=== PATIENT | female | born 1970 | race Caucasian/White ===

== ENCOUNTER 2018-04-14 13:11 | Emergency (ER) | payer OTHER ==
[~2018-04-14] VITALS: Ht 152.4 cm; Wt 68.0 kg
[~2018-04-14 13:11] MED LIST: ADDERALL 20 MG20 MG; BYSTOLIC10 MG; CLONAZEPAM; K-DUR 20 MEQ T20 MEQ; LASIX 40 MG TAB40 M1; NORCO 5-325 TA1 EACH PO; PERCOCET 5-3251 EACH PO; PHENERGAN 25 MG25 M1 PO; PROZAC 20 MG20 M1; SYNTHROID50 MCG
[2018-04-14] MEDS ORDERED: [UNRECOGNIZED DRUG - OTHER] (13:30)
[2018-04-14] MEDS ORDERED: QUETIAPINE FUM100 MG PO (13:30)
[2018-04-14] MEDS ORDERED: LATUDA20 MG PO (13:31)
[2018-04-14] MEDS ORDERED: TOPAMAX25 M1 PO (13:31)
[2018-04-14] MEDS ORDERED: VERAPAMIL E.R240 M1 PO (13:35)
[2018-04-14] MEDS ORDERED: MOBIC15 MG PO (13:55)
[2018-04-14] MEDS ORDERED: MEDROL DOSPAK21 TA1 PO (13:55)
[2018-04-14 14:18] VITALS: BP 132/84
== END 2018-04-14 14:19 | disposition home or self-care (01) ==
LOC: M.ERS 13:11
DX: S83.242A Other tear of medial meniscus, current injury, left knee, initial encounter (principal); I10 Essential (primary) hypertension; F32.9 Major depressive disorder, single episode, unspecified; Z88.8 Allergy status to other drugs, medicaments and biological substances; Z88.1 Allergy status to other antibiotic agents; Z91.030 Bee allergy status; Z91.018 Allergy to other foods; Z88.0 Allergy status to penicillin; Z88.2 Allergy status to sulfonamides; Z88.6 Allergy status to analgesic agent; Z91.012 Allergy to eggs; Z98.890 Other specified postprocedural states; Z90.711 Acquired absence of uterus with remaining cervical stump; Z90.49 Acquired absence of other specified parts of digestive tract; W00.0XXA Fall on same level due to ice and snow, initial encounter; Y93.89 Activity, other specified; Y92.89 Other specified places as the place of occurrence of the external cause; Y99.8 Other external cause status

== ENCOUNTER 2020-09-05 20:06 | Emergency (ER) | payer OTHER ==
[~2020-09-05] VITALS: Ht 149.9 cm; Wt 79.4 kg
[~2020-09-05 20:06] MED LIST changes: +LATUDA20 MG PO; +MEDROL DOSPAK21 TA1 PO; +MOBIC15 MG PO; +QUETIAPINE FUM100 MG PO; +TOPAMAX25 M1 PO; +VERAPAMIL E.R240 M1 PO; +[UNRECOGNIZED DRUG - OTHER]
[2020-09-05 20:20] VITALS: BP 151/98
[2020-09-05] MEDS ORDERED: LEVO-T100 MCG PO (20:34)
[2020-09-05] MEDS ORDERED: TROKENDI XR200 MG PO (20:35)
[2020-09-05] MEDS ORDERED: VERAPAMIL ER120 MG PO (20:36)
[2020-09-05] MEDS ORDERED: DEPAKOTE ER500 M1 PO (20:37)
[2020-09-05] MEDS ORDERED: [UNRECOGNIZED DRUG - OTHER] PO (20:37)
[2020-09-05] MEDS ORDERED: ZOLOFT25 MG PO (20:38)
[2020-09-05] MEDS ORDERED: TRAZODONE HCL100 MG PO (20:38)
[2020-09-05] MEDS ORDERED: PREGABALIN150 MG PO (20:38)
[2020-09-05] MEDS ORDERED: LIPITOR40 MG PO (20:39)
[2020-09-05] MEDS ORDERED: [UNRECOGNIZED DRUG - OTHER] IM (20:40)
[2020-09-05] MEDS ORDERED: MYRBETRIQ25 MG PO (20:41)
[2020-09-05] MEDS ORDERED: FLONASE 0.05%50 MCG NARES (20:42)
[2020-09-05 20:51] LABS: URINE BILIRUBIN NEGATIVE (Negative); URINE BLOOD 1+ (Negative); URINE COLOR YELLOW; URINE GLUCOSE-RANDOM TRACE (Negative); URINE KETONES NEGATIVE (Negative); URINE LEUKOCYTES-REFLEX TRACE (Negative); URINE PROTEIN NEGATIVE (Negative)
[2020-09-05 20:52] LABS: URINE CLARITY HAZY; URINE NITRITE-REFLEX POSITIVE (Negative)
[2020-09-05 20:54] LABS: BACTERIA-REFLEX 1-9 Few /HPF (None Seen); CASTS None Seen /LPF (None Seen); CRYSTALS None Seen /LPF (None Seen); SQUAMOUS 4-10 Moderate /LPF (0-3); URINE RBC 3-10 Few /HPF (0-2); URINE WBC-REFLEX 0-5 Rare /HPF (0-5)
[2020-09-05 22:50] LABS: AMP/METHAMP Negative (Negative); BARBITURATES Negative (Negative); BENZODIAZEPINES Negative (Negative); COCAINE Negative (Negative); METHADONE Negative (Negative); OPIATES Negative (Negative); PCP Negative (Negative); THC Negative (Negative)
[2020-09-06 00:10] LABS: ABSOLUTE EOSINOPHILS 0.1 thou/uL (0.0-0.7); ABSOLUTE LYMPHOCYTES 1.2 thou/uL (0.8-5.3); ABSOLUTE MONOCYTES 0.5 thou/uL (0.0-1.2); ABSOLUTE NEUTROPHILS 7.1 thou/uL (1.6-8.1); BASOPHILS 0.4 %; EOSINOPHILS 0.6 %; HEMATOCRIT 42.3 % (37.0-47.0); HEMOGLOBIN 14.4 gm/dL (12.0-15.0); LYMPHOCYTES 13.4 %; MCH 31.7 pg (26.0-34.0); MCHC 33.9 g/dL (28.0-37.0); MCV 93.5 fL (80.0-100.0); MONOCYTES 5.3 %; NUCLEATED RBCS 0 /100WBC; PLATELET COUNT* 165 thou/uL (150-400); POLYS 80.3 %; RBC 4.53 mil/uL (4.20-5.00); RDW-CV 14.3 % (10.5-14.5); WBC 8.8 thou/uL (4.0-11.0)
[2020-09-06 00:18] LABS: CALCIUM 9.1 mg/dL (8.5-10.1); CREATININE 1.1 mg/dL (0.6-1.3)
[2020-09-06] MEDS ORDERED: ZOFRAN ODT4 MG PO (01:30)
[2020-09-06] MEDS ORDERED: HYDROCODON-ACE1 EAC8 PO (01:30)
[2020-09-06] MEDS ORDERED: COMPAZINE10 M2 PO (02:12)
== END 2020-09-06 02:28 | disposition home or self-care (01) ==
LOC: M.ERS 20:06
PROVIDERS: Emergency Medicine
DX: N20.0 Calculus of kidney (principal); N39.0 Urinary tract infection, site not specified; F12.90 Cannabis use, unspecified, uncomplicated; I10 Essential (primary) hypertension; Z88.1 Allergy status to other antibiotic agents; Z91.030 Bee allergy status; Z88.3 Allergy status to other anti-infective agents; Z79.899 Other long term (current) drug therapy; Z98.51 Tubal ligation status; Z90.49 Acquired absence of other specified parts of digestive tract

== ENCOUNTER 2021-04-21 15:40 | Emergency (ER) | payer BC ==
[~2021-04-21] VITALS: Ht 149.9 cm; Wt 79.4 kg
[~2021-04-21 15:40] MED LIST changes: +COMPAZINE10 M2 PO; +DEPAKOTE ER500 M1 PO; +FLONASE 0.05%50 MCG NARES; +HYDROCODON-ACE1 EAC8 PO; +LEVO-T100 MCG PO; +LIPITOR40 MG PO; +MYRBETRIQ25 MG PO; +PREGABALIN150 MG PO; +TRAZODONE HCL100 MG PO; +TROKENDI XR200 MG PO; +VERAPAMIL ER120 MG PO; +ZOFRAN ODT4 MG PO; +ZOLOFT25 MG PO; +[UNRECOGNIZED DRUG - OTHER] IM; +[UNRECOGNIZED DRUG - OTHER] PO
[2021-04-21] MEDS ORDERED: NURTEC ODT75 MG PO (15:57)
[2021-04-21] MEDS ORDERED: METFORMIN HCL500 M3 PO (15:58)
[2021-04-21 17:45] LABS: URINE BILIRUBIN NEGATIVE (Negative); URINE BLOOD NEGATIVE (Negative); URINE CLARITY CLEAR; URINE COLOR YELLOW; URINE GLUCOSE-RANDOM NEGATIVE (Negative); URINE KETONES NEGATIVE (Negative); URINE LEUKOCYTES NEGATIVE (Negative); URINE NITRITE NEGATIVE (Negative); URINE PROTEIN NEGATIVE (Negative); URINE SPECIFIC GRAVITY 1.015 (1.005-1.030); URINE UROBILINOGEN 0.2 E.U./dl (0.2-1.0)
[2021-04-21 17:48] LABS: ABSOLUTE EOSINOPHILS 0.1 thou/uL (0.0-0.7); ABSOLUTE LYMPHOCYTES 1.8 thou/uL (0.8-5.3); ABSOLUTE MONOCYTES 0.4 thou/uL (0.0-1.2); ABSOLUTE NEUTROPHILS 3.3 thou/uL (1.6-8.1); BASOPHILS 0.6 %; EOSINOPHILS 2.3 %; HEMOGLOBIN 13.9 gm/dL (12.0-15.0); LYMPHOCYTES 31.7 %; MCH 31.2 pg (26.0-34.0); MCV 94.5 fL (80.0-100.0); MONOCYTES 7.2 %; MPV 6.7 fl. (7.2-11.1); NUCLEATED RBCS 0 /100WBC; PLATELET COUNT* 233 thou/uL (150-400); POLYS 58.2 %; RBC 4.44 mil/uL (4.20-5.00); RDW-CV 13.8 % (10.5-14.5); WBC 5.6 thou/uL (4.0-11.0)
[2021-04-21 17:54] LABS: CALCIUM 8.7 mg/dL (8.5-10.1); POTASSIUM 3.7 mmol/L (3.5-5.1)
[2021-04-21 17:58] LABS: ALBUMIN 3.9 g/dL (3.4-5.0); TOTAL BILIRUBIN 0.3 mg/dL (<0.1-1.0); TOTAL PROTEIN 7.6 g/dL (6.4-8.2)
[2021-04-21 18:47] VITALS: BP 141/99
== END 2021-04-21 18:48 | disposition home or self-care (01) ==
LOC: M.ERS 15:40
PROVIDERS: Physician Assistant
DX: R09.81 Nasal congestion (principal); Z20.822 Contact with and (suspected) exposure to COVID-19; R53.83 Other fatigue; R53.1 Weakness; R06.02 Shortness of breath; R05.9 Cough, unspecified; R19.7 Diarrhea, unspecified; I10 Essential (primary) hypertension; F31.9 Bipolar disorder, unspecified; M79.7 Fibromyalgia; Z98.51 Tubal ligation status; Z90.710 Acquired absence of both cervix and uterus; Z90.49 Acquired absence of other specified parts of digestive tract; Z87.42 Personal history of other diseases of the female genital tract; Z79.899 Other long term (current) drug therapy; Z88.1 Allergy status to other antibiotic agents; Z88.8 Allergy status to other drugs, medicaments and biological substances; Z91.018 Allergy to other foods; Z88.0 Allergy status to penicillin; Z88.2 Allergy status to sulfonamides; Z91.012 Allergy to eggs; Z91.048 Other nonmedicinal substance allergy status